=== PATIENT | male | born 1960 | race Caucasian/White ===

== ENCOUNTER → 2018-05-07 09:54 | Outpatient (CLI) | payer OTHER, SELFPAY ==
[2018-05-07 11:03] LABS: Cholesterol 244 mg/dL (140-199); HDL Cholesterol 69 mg/dL (40-60); LDL Cholesterol Calculated 157 mg/dL (<100); Triglycerides 89 mg/dL (35-150)
[2018-05-07 11:16] LABS: Vitamin D 25 Hydroxy (D3) 53.6 ng/mL (30.0-100.0)
== END ==
PROVIDERS: PCP Student in an Organized Health Care Education/Training Program; Visit Provider Student in an Organized Health Care Education/Training Program
DX: Z13.220 Encounter for screening for lipoid disorders (principal); E55.9 Vitamin D deficiency, unspecified; Z12.5 Encounter for screening for malignant neoplasm of prostate
CPT/HCPCS: 36415; 80061; 82306; G0103

== ENCOUNTER → 2018-05-21 09:07 | Outpatient (CLI) | payer OTHER, SELFPAY ==
--- NOTE | 2018-05-21 09:10 | DI.MRI.S_ITS ---
PROCEDURE: MR KNEE RT WO CON INDICATIONS: Knee pain - RIGHT TECHNIQUE: Noncontrast sagittal PD fast spin echo and T2 fast spin echo with fat saturation, sagittal 3-D FLASH with fat saturation; coronal T1 spin echo and PD fast spin echo with fat saturation, and axial PD fast spin echo with fat saturation through the knee. COMPARISON: None. FINDINGS: Image quality: Excellent. Menisci: Lateral meniscus appears grossly intact. There is marked truncation of the medial meniscal body. The medial meniscal anterior horn is not well visualized and there is a suspected medial meniscal tear with displaced fragment seen on image 18 series 7, in the region of the intercondylar notch. There is also irregularity of the undersurface of the posterior horn on image 25 series 7. Cruciate ligaments: The anterior and posterior cruciate ligaments appear intact. Medial structures: The medial collateral ligament appears intact. The posterior oblique ligament, semimembranosus tendon insertions, oblique popliteal ligament, and meniscocapsular junction appear intact. Visualized portions of the pes anserinus tendons appear normal. No abnormal bursal fluid. Lateral structures: The lateral collateral ligament, long and short heads of the biceps femoris tendon appear intact. The popliteus tendon appears normal; the popliteofibular ligament appears intact. The posterosuperior and anteroinferior popliteomeniscal fascicles appear intact. The arcuate and fabellofibular ligaments appear intact, on either side of the lateral inferior geniculate artery. Iliotibial band appears normal. Anterior structures: Quadriceps and patellar tendons appear grossly intact although there is diffuse low grade patellar tendinopathy. Deep infrapatellar bursitis is seen. There is unremarkable appearance of Hoffa's fat pad. Bones and cartilage: No focal marrow contusion or discrete low signal fracture line. Within the medial compartment, mild diffuse partial thickness loss of the femoral and tibial articular. No focal defects seen. Within the lateral compartment, no focal articular cartilage defect. Within the patellofemoral compartment, articular cartilage appears grossly preserved. Joint space: Small joint effusion is present. No Zamorano's cyst identified. No intra-articular loose bodies detected. IMPRESSION: Complex medial meniscal tear with suspected displaced bucket-handle fragment in the region of the intercondylar notch. Small joint effusion. Proximal patellar tendinopathy. Deep infrapatellar bursitis. Dictated by: Lucas Jefferson M.D. on 05/21/2018 at 12:40 Approved by: Lucas Jefferson M.D. on 05/21/2018 at 12:47
== END ==
PROVIDERS: PCP Student in an Organized Health Care Education/Training Program; Visit Provider Student in an Organized Health Care Education/Training Program
DX: M25.561 Pain in right knee (principal); S83.231A Complex tear of medial meniscus, current injury, right knee, initial encounter; M25.461 Effusion, right knee; M71.561 Other bursitis, not elsewhere classified, right knee
CPT/HCPCS: 73721

== ENCOUNTER → 2020-12-18 15:12 | Outpatient (CLI) | payer OTHER, SELFPAY ==
[2020-12-18 17:22] LABS: Prostate Specific Antigen Scrn 0.691 ng/mL (0.1-4.0)
== END ==
PROVIDERS: PCP Student in an Organized Health Care Education/Training Program; Referring Provider Student in an Organized Health Care Education/Training Program; Visit Provider Student in an Organized Health Care Education/Training Program
DX: Z12.5 Encounter for screening for malignant neoplasm of prostate (principal)
CPT/HCPCS: 36415; G0103

== ENCOUNTER 2021-12-17 16:52 | Emergency (ER) | payer OTHER, SELFPAY ==
[2021-12-17 16:55] VITALS: BP 158/82; PULSE 91; RESP 20; TEMP 37.4; O2SAT 98
--- NOTE | 2021-12-17 17:00 | DI.RAD.S_ITS ---
PROCEDURE: XR SHOULDER LT MIN 2V INDICATIONS: pain without known injury TECHNIQUE: 2 views of the shoulder were acquired. COMPARISON: None. FINDINGS: Bones: No fractures or dislocations. No suspicious bony lesions. Mild degenerative joint disease in acromioclavicular and glenohumeral joint. Visualized ribs appear intact. Soft tissues: No suspicious soft tissue calcifications. IMPRESSION: No acute osseous abnormalities. Mild degenerative joint disease. If clinical symptoms persist or clinical suspicion for pathology is high, a repeat examination in 7-10 days, or advanced imaging such as CT or MRI is suggested for further evaluation. Dictated by: Joseph Bradley M.D. on 12/17/2021 at 18:05 Approved by: Joseph Bradley M.D. on 12/17/2021 at 18:08
[2021-12-17 19:00] VITALS: PULSE 70
--- NOTE | 2021-12-17 19:11 | ED_ITS ---
HPI - Extremity Injury (Upper) <Joslyn Brown PA-C - Last Filed: 12/17/21 20:27> General Chief Complaint: Extremity Injury, Upper Stated Complaint: left shoulder pain Time Seen by Provider: 12/17/21 19:10 Source: patient Mode of arrival: Ambulatory History of Present Illness HPI narrative: 61-year-old male with past medical history hypercholesterolemia presents to the ED with 2 days of left-sided shoulder pain. Patient states that he awoke with this pain yesterday morning. Denies trauma. Patient states that it is extremely painful to move his arm, particularly abduction of the left arm. Patient denies numbness, tingling, weakness. Patient has no pre-existing shoulder conditions. Patient denies chest pain, shortness of breath, fever, chills. Patient does endorse some nausea associated with the pain. Patient denies vomiting. Related Data Home Medications Medication Instructions Recorded Confirmed geriatric [id number] PO 09/21/17 12/18/20 Previous Rx's Medication Instructions Recorded cyclobenzaprine 10 mg tablet 10 mg PO TID PRN muscle spasm #10 12/17/21 tabs tramadol 100 mg tablet 100 mg PO TID PRN pain 3 days #10 12/17/21 tabs Allergies Allergy/AdvReac Type Severity Reaction Status Date / Time cat dander Allergy Mild wheezy Verified 12/18/20 14:38 Review of Systems <Joslyn Brown PA-C - Last Filed: 12/17/21 20:27> Review of Systems ROS Unobtainable: All systems reviewed & are unremarkable except as noted in HPI and below Constitutional Constitutional: Denies chills, Denies fatigue, Denies fever(s), Denies frequent falls, Denies lethargy and Denies weakness Eyes Eyes: Denies change in vision, Denies eye discharge, Denies irritation and Denies loss of vision ENT Ears, Nose, Mouth, and Throat: Denies change in voice, Denies dizziness, Denies neck pain, Denies sore throat and Denies throat swelling Cardiovascular Cardiovascular: Denies chest pain, Denies irregular heart rhythm, Denies lightheadedness, Denies palpitations, Denies dyspnea, Denies dyspnea on exertion and Denies orthopnea Respiratory Respiratory: Denies cough, Denies dyspnea, Denies dyspnea on exertion and Denies wheezing Gastrointestinal Gastrointestinal: Denies abdominal pain, Denies change in bowel habits, Denies diarrhea, Denies nausea and Denies vomiting Genitourinary Genitourinary: Denies hematuria, Denies flank pain, Denies urinary incontinence and Denies urinary urgency Musculoskeletal Musculoskeletal: Denies back pain, Denies muscle weakness, Denies neck pain, Denies numbness and Denies tingling Integumentary/Breasts Skin/Breast: Denies pruritus, Denies erythema, Denies rash and Denies wounds Neurologic Neurologic: Denies behavioral changes, Denies confusion, Denies dizziness, Denies frequent falls, Denies loss of vision, Denies numbness, Denies tingling and Denies weakness Psychiatric Psychiatric: Denies anxiety, Denies behavioral changes, Denies confusion, Denies depression, Denies homicidal ideation and Denies suicidal ideation Endocrine Endocrine: Denies fatigue, Denies flushing and Denies palpitations Hematologic/Lymphatic Hematologic/Lymphatic: Denies easy bruising Allergic/Immunologic Allergic/Immunologic: Denies urticaria, Denies throat swelling and Denies wheezing Patient History <Joslyn Brown PA-C - Last Filed: 12/17/21 20:27> Medical History Asthma (~1989) Herpes (~1984) Knee problem (~2017) Seasonal allergies (~1997) Surgical History Anesthesia History of colonoscopy (~2012) History of eye surgery (~1965) Family History Father Cancer Mother Family history of thyroid problem Brother Colon polyps Sister Family history of thyroid problem Sister Colon polyps Social History Smoking Status: Never smoker Smoking Status: Never smoker Exam <Joslyn Brown PA-C - Last Filed: 12/17/21 20:27> Narrative Exam Narrative: Const General:?cooperative, healthy appearing and comfortable [facility] Head:?normal to inspection Ears:?hearing grossly normal bilaterally Nose:?external nose normal Face and sinus:?normal facial exam and sinuses nontender Mouth:?oral mucosae normal Throat:?posterior oropharynx normal Eyes General:?appearance normal, both eyes and all related structures Neck Neck:?normal visual inspection and no lymphadenopathy noted Resp Effort & Inspection:?normal respiratory effort Auscultation:?clear to auscultation bilaterally Cardio Rate:?regular rate Rhythm:?regular rhythm Musculoskeletal No bruising, deformities noted on exam. Range of motion severely limited by pain. Strength unable to be tested due to pain. Sensation is intact. Patient is neurovascularly intact. Neuro General:?patient alert, patient awake and patient oriented x3 Initial Vital Signs Initial Vital Signs: Vital Signs Temperature 99.3 F 12/17/21 16:55 Pulse Rate 91 H 12/17/21 16:55 Respiratory Rate 20 12/17/21 16:55 Blood Pressure 158/82 H 12/17/21 16:55 Pulse Oximetry 98 12/17/21 16:55 Oxygen Delivery Method 12/17/21 16:55 <Myriam Franco DO - Last Filed: 12/18/21 02:47> Initial Vital Signs Initial Vital Signs: Vital Signs Temperature 99.3 F 12/17/21 16:55 Pulse Rate 91 H 12/17/21 16:55 Respiratory Rate 20 12/17/21 16:55 Blood Pressure 158/82 H 12/17/21 16:55 Pulse Oximetry 98 12/17/21 16:55 Oxygen Delivery Method 12/17/21 16:55 Course <Joslyn Brwon PA-C - Last Filed: 12/17/21 20:27> Orders Ordered: Discontinued Medications Cyclobenzaprine HCl (Cyclobenzaprine 10 Mg Tablet) 10 mg PO NOW ONE Stop: 12/17/21 19:31 Last Admin: 12/17/21 19:42 Dose: 10 mg Documented By: BUZZ Ondansetron HCl (Ondansetron 4 Mg Odt) 4 mg SL NOW ONE Stop: 12/17/21 19:31 Last Admin: 12/17/21 19:42 Dose: 4 mg Documented By: BUZZ Tramadol HCl (Tramadol 50 Mg Tablet) 100 mg PO NOW ONE Stop: 12/17/21 19:31 Last Admin: 12/17/21 19:42 Dose: 100 mg Documented By: BUZZ Vital Signs Vital signs: Vital Signs - 8 hr 12/17/21 19:24 12/17/21 19:00 Pulse Rate 89 Pulse Rate [Left Radial] 70 Blood Pressure 153/78 H Pulse Oximetry 98 Oxygen Delivery Method Room Air <Myriam Franco DO - Last Filed: 12/18/21 02:47> Orders Ordered: Discontinued Medications Cyclobenzaprine HCl (Cyclobenzaprine 10 Mg Tablet) 10 mg PO NOW ONE Stop: 12/17/21 19:31 Last Admin: 12/17/21 19:42 Dose: 10 mg Documented By: BUZZ Ondansetron HCl (Ondansetron 4 Mg Odt) 4 mg SL NOW ONE Stop: 12/17/21 19:31 Last Admin: 12/17/21 19:42 Dose: 4 mg Documented By: BUZZ Tramadol HCl (Tramadol 50 Mg Tablet) 100 mg PO NOW ONE Stop: 12/17/21 19:31 Last Admin: 12/17/21 19:42 Dose: 100 mg Documented By: BUZZ Vital Signs Vital signs: Vital Signs - 8 hr 12/17/21 19:24 12/17/21 19:00 Pulse Rate 89 Pulse Rate [Left Radial] 70 Blood Pressure 153/78 H Pulse Oximetry 98 Oxygen Delivery Method Room Air MDM - Extremity Injury (Upper) <Joslyn Brown PA-C - Last Filed: 12/17/21 20:27> Imaging Data Extremity x-ray #1: Radiologist's Impression: PROCEDURE:? XR SHOULDER LT MIN 2V ? INDICATIONS:? pain without known injury ? TECHNIQUE:? 2 views of the shoulder were acquired.? ? COMPARISON:? None. ? FINDINGS:? ? Bones:? No fractures or dislocations.? No suspicious bony lesions.? Mild degenerative joint disease in acromioclavicular and glenohumeral joint.? Visualized ribs appear intact.? ? Soft tissues:? No suspicious soft tissue calcifications.? ? IMPRESSION:? No acute osseous abnormalities.? Mild degenerative joint disease.? If clinical symptoms persist or clinical suspicion for pathology is high, a repeat examination in 7-10 days, or advanced imaging such as CT or MRI is suggested for further evaluation. ? ? Dictated by: Joseph Bradley M.D. on 12/17/2021 at 18:05 ? ? Approved by: Joseph Bradley M.D. on 12/17/2021 at 18:08 ? MDM Narrative Medical decision making narrative: 61-year-old male with past medical history hypercholesterolemia presents to the ED with 2 days of left-sided shoulder pain. X-ray negative for fracture/dislocation. Concern for rotator cuff injury versus musculoskeletal sprain/strain versus other. Recommend tramadol, Flexeril for symptom control. Recommend follow-up with PCP, physical therapy for further evaluation. ED return precautions discussed with patient. Patient verbalized understanding. Discharge Plan Departure Patient Disposition: Home Clinical Impression: Acute shoulder pain Instructions: DI for Shoulder Pain Activity Restrictions/Additional Instructions: You were evaluated in the ED today for left-sided shoulder pain. Your shoulder x-ray did not show any fracture or dislocation. Your pain is likely due to either a rotator cuff injury or a musculoskeletal sprain/strain. You may take tramadol, Flexeril for your symptoms. You may apply a warm pack. Please follow-up with your PCP for further evaluation, PT referral. Return to the ED if you experience any numbness, tingling, weakness. Prescriptions: New cyclobenzaprine 10 mg tablet 10 mg PO TID PRN (Reason: muscle spasm) Qty: 10 0RF tramadol 100 mg tablet 100 mg PO TID PRN (Reason: pain) 3 Days Qty: 10 0RF No Action geriatric [id number] PO Referrals: Rj Clay MD [Primary Care Provider] - Visit Report Forms: Patient Portal/API <Myriam Franco DO - Last Filed: 12/18/21 02:47> [facility] ED Attending Antonio Attestation: I was immediately available in the department for consultation. Documentation has been reviewed. I agree with assessment and plan.
[2021-12-17 19:24] VITALS: BP 153/78; PULSE 89; O2SAT 98
[2021-12-17] MEDS: TRAMADOL 50 MG TABLET 100 MG PO (19:42)
[2021-12-17] MEDS: CYCLOBENZAPRINE 10 MG TABLET PO (19:42)
[2021-12-17] MEDS: ONDANSETRON 4 MG ODT SL (19:42)
== END 2021-12-17 19:51 | disposition home or self-care (01) ==
PROVIDERS: Emergency Provider Student in an Organized Health Care Education/Training Program; PCP Student in an Organized Health Care Education/Training Program
DX: M25.512 Pain in left shoulder (principal)
CPT/HCPCS: 73030; 99283

== ENCOUNTER 2022-05-01 07:07 | Day surgery (SDC) | payer OTHER, SELFPAY ==
[2022-05-01] MEDS: LACTATED RINGERS 1,000 ML 42 ML IV (07:28)
[2022-05-01 07:38] VITALS: BP 156/86; PULSE 93; RESP 16; TEMP 36.6; O2SAT 98; BMI 22.2
--- NOTE | 2022-05-01 08:14 | PM.HP.1 ---
History of Present Illness History of Present Illness Date Patient Seen: 05/01/22 Time Patient Seen: 08:14 Chief complaint: SDC Narrative: Kenny is a 61-year-old man who had a colonoscopy 10 years ago that was normal. No family history of colon cancer. His siblings have had multiple polyps. Patient History Medical History Asthma (~1989) Herpes (~1984) Knee problem (~2017) Seasonal allergies (~1997) Surgical History Anesthesia History of colonoscopy (~2012) History of eye surgery (~1964) Family & Social History Family History Father Cancer Mother Family history of thyroid problem Brother Colon polyps Sister Family history of thyroid problem Sister Colon polyps Social History: household members spouse Tobacco & Substance use: Smoking Status Never smoker alcohol intake current alcohol intake frequency a few times a month Substance Use Type does not use Meds Home Medications and Allergies Home Medications Medication Instructions Recorded Confirmed Type geriatric [id number] 1 tab PO DAILY 09/21/17 05/01/22 History Allergies Allergy/AdvReac Type Severity Reaction Status Date / Time cat dander Allergy Mild wheezy Verified 05/01/22 07:35 Exam Vital Signs (past 8 hours): - 05/01/22 07:38 Temperature 97.8 F Pulse Rate 93 H Respiratory Rate 16 Blood Pressure 156/86 H Pulse Oximetry 98 Oxygen Delivery Method Room Air Oxygen Delivery Method Room Air Const General: healthy appearing Assessment & Plan Assessment and plan (1) Colon cancer screening: Status: Acute Plan We reviewed the risks and benefits of colonoscopy for colon cancer screening and he would like to proceed.
--- NOTE | 2022-05-01 08:56 | PM.OP.COLON ---
Operative Date/Time/Diagnoses Date of procedure: 05/01/22 Time of procedure: 08:56 Pre-op diagnosis: Colon cancer screening Post-op diagnosis: same Procedure & Clinicians Study performed: Colonoscopy Same procedure as scheduled: Yes Surgeon: Carter Talavera Procedure Notes Procedure in detail: Surgeon: Carter Talavera MD Anesthesia: Dr. Springer Procedure: The patient was brought to the endoscopy suite, placed in left lateral decubitus position. The patient was connected to monitoring devices. A time-out was performed. Sedation was administered. Once the patient was adequately sedated, a digital rectal exam was performed and was normal. The scope was then inserted and advanced to the cecum where the appendiceal orifice was identified and photographed. The scope was then slowly withdrawn over greater than 6 minutes. The mucosa was thoroughly inspected. No abnormalities were seen. The scope was retroflexed in the rectum. Internal hemorrhoids were seen. The scope was straightened and removed. The patient was awakened and brought to recovery. Scope withdrawal time: 7 minutes Sedation time: 14 minutes EBL: 0 Findings: Normal colon Post-procedure Recommendations: Colonoscopy in 10 years Disposition: PACU
[2022-05-01 08:59] VITALS: BP 115/74; PULSE 69; RESP 16; TEMP 36.9; O2SAT 96
[2022-05-01 09:05] VITALS: BP 131/78; PULSE 75; RESP 14; O2SAT 98
[2022-05-01 09:09] VITALS: BP 129/81; PULSE 72; RESP 16; O2SAT 99
== END 2022-05-01 09:25 | disposition home or self-care (01) ==
PROVIDERS: Family Provider Student in an Organized Health Care Education/Training Program; PCP Student in an Organized Health Care Education/Training Program; Referring Provider Surgery; Visit Provider Surgery
PROC: 0DJD8ZZ Inspection of Lower Intestinal Tract, Via Natural or Artificial Opening Endoscopic (ICD-10-PCS; CPT 45378; principal; 2022-05-01 08:15)
DX: Z12.11 Encounter for screening for malignant neoplasm of colon (principal); K64.8 Other hemorrhoids
CPT/HCPCS: 45378; J2250; J2704

== ENCOUNTER → 2022-05-08 09:32 | Outpatient (CLI) | payer OTHER, SELFPAY ==
[2022-05-08 11:11] LABS: Cholesterol 238 mg/dL (140-199); HDL Cholesterol 91 mg/dL (40-60); LDL Cholesterol Calculated 131 mg/dL (<100); Triglycerides 79 mg/dL (35-150)
[2022-05-08 11:39] LABS: Prostate Specific Antigen Scrn 1.11 ng/mL (0.1-4.0)
[2022-05-08 19:15] LABS: Hep C Virus Ab w/Reflex Quant NEGATIVE s/c (NEGATIVE)
== END ==
PROVIDERS: Family Provider Student in an Organized Health Care Education/Training Program; PCP Student in an Organized Health Care Education/Training Program; Referring Provider Student in an Organized Health Care Education/Training Program; Visit Provider Student in an Organized Health Care Education/Training Program
DX: Z11.59 Encounter for screening for other viral diseases (principal); E78.00 Pure hypercholesterolemia, unspecified; Z12.5 Encounter for screening for malignant neoplasm of prostate
CPT/HCPCS: 36415; 80061; 86803; G0103

== ENCOUNTER → 2023-05-12 08:29 | Outpatient (CLI) | payer OTHER, SELFPAY ==
[2023-05-12 10:29] LABS: Cholesterol 234 mg/dL (140-199); HDL Cholesterol 89 mg/dL (40-60); LDL Cholesterol Calculated 129 mg/dL (<100); Triglycerides 79 mg/dL (35-150)
== END ==
PROVIDERS: Family Provider Student in an Organized Health Care Education/Training Program; PCP Family Medicine; Referring Provider Family Medicine; Visit Provider Family Medicine
DX: Z01.83 Encounter for blood typing (principal); E78.00 Pure hypercholesterolemia, unspecified; Z13.9 Encounter for screening, unspecified
CPT/HCPCS: 36415; 80061; 86900; 86901